=== PATIENT | male | born 1965 | race Caucasian/White ===

== ENCOUNTER 2018-01-16 06:16 | Day surgery (SDC) | payer OTHER ==
[2018-01-15 11:50] VITALS: BMI 27.4
[2018-01-16] MEDS ORDERED: ACETAMINOPHEN 1000 MG/100 ML VIAL (NON FORMULARY) IVPB ONE (07:41)
--- NOTE | 2018-01-16 07:42 | HP ---
History & Physical Update - History History: No Change - Physical Physical: No Change - Assessment Assessment: No Change - Plan Plan: No Change
[2018-01-16] MEDS ORDERED: ceFAZolin SODIUM 1 GM VIAL IVPB ONE (07:45)
[2018-01-16] MEDS ORDERED: MIDAZOLAM HCL 2 MG/2 ML SINGLE DOSE VIAL ONE ×2 (07:45)
[2018-01-16] MEDS ORDERED: DEXTROSE 5%-0.45% SALINE 1,000 ML IV SCH (07:45)
[2018-01-16] MEDS ORDERED: IBUPROFEN 800 MG/8 ML IJ IVPB SCH (07:45)
[2018-01-16] MEDS ORDERED: PROPOFOL 20 ML ONE ×2 (07:45)
[2018-01-16] MEDS ORDERED: SUCCINYLCHOLINE CHLORIDE 200 MG/10 ML VIAL ONE (07:47)
[2018-01-16] MEDS ORDERED: LIDOCAINE HCL 2% JELLY 10 ML CARTRIDGE ONE (07:57)
[2018-01-16] MEDS ORDERED: ONDANSETRON 4 MG/2 ML VIAL IVPUSH PRN (08:29)
[2018-01-16] MEDS ORDERED: PROMETHAZINE HCL 25 MG/1 ML VIAL IVPUSH PRN (08:29)
[2018-01-16] MEDS ORDERED: oxyCODONE HCL 5 MG TABLET PO PRN (08:29)
[2018-01-16] MEDS ORDERED: LACTATED RINGERS SOLUTION 1,000 ML IV SCH (08:30)
[2018-01-16] MEDS ORDERED: IBUPROFEN 800 MG/8 ML IJ IVPB ONE (08:48)
--- NOTE | 2018-01-16 09:13 | OP ---
DATE OF OPERATION: 01/16/2018 PREOPERATIVE DIAGNOSIS: Bulbar urethral stricture. POSTOPERATIVE DIAGNOSIS: Bulbar urethral stricture. PROCEDURES: Cystoscopy and internal urethrotomy. ANESTHESIA: General. ANESTHESIOLOGIST: Samreen Rutledge MD FINDINGS: A dense bulbar urethral stricture. DRAINS: A Pablo catheter, 20-[place]. ESTIMATED BLOOD LOSS: Minimal. SPECIMENS: No specimens. PREOPERATIVE INDICATIONS: The patient is a 52-year-old male with a recurrent bulbar urethral stricture. He comes to the OR today for internal urethrotomy. Risks, benefits and alternatives were discussed with the patient, including the risks of bleeding, infection, and incontinence. Patient reports he already has urinary incontinence prior to the procedure. OPERATION: The patient was brought to the OR, placed on the table in supine position, given general anesthesia, IV antibiotics, and placed in the modified lithotomy position. The groin was prepped and draped sterilely. Cystoscopy was performed. The distal urethra was normal. There was a dense bulbar urethral stricture, as previously seen. A wire was passed through the scope, into the bladder, and using the cold knife it was incised at the 12 o'clock position. The scope was then easily passed through there. The suture was proximal to the stricture and separate and uninjured. The prostate itself with mild BPH and no significant obstruction. The bladder itself had no tumors or stones were seen, mild trabeculation throughout. Both UOs were seen with clear efflux. A Pablo catheter was placed over the wire. The balloon was inflated and the wire was removed. Luis [id number]
[2018-01-16 09:40] VITALS: TEMP 98.1
[2018-01-16] MEDS ORDERED: oxyCODONE HCL 5 MG TABLET ONE (11:17)
[2018-01-16 13:54] VITALS: BP 126/75; PULSE 76
== END 2018-01-16 13:55 | disposition home or self-care (01) ==
LOC: JASU-SURG 06:16
PROVIDERS: ATTEND Urology
PROC: 0T7D8ZZ Dilation of Urethra, Via Natural or Artificial Opening Endoscopic (ICD-10-PCS; principal; 2018-01-16 07:30)
DX: N35.8 Other urethral stricture (principal)